=== PATIENT | female | born 1980 | race Caucasian/White ===

== ENCOUNTER 2016-08-01 16:26 | Outpatient (CLI) | payer BC ==
[2016-08-01 16:50] VITALS: BP 116/64
[2016-08-02] MEDS ORDERED: PRENATAL TABLE1 EAC3 PO (06:21)
[2016-08-02] MEDS ORDERED: PRILOSEC OTC20 MG PO (06:21)
[2016-08-02] MEDS ORDERED: VALTREX50 MG/ML PO (06:21)
== END 2016-08-01 18:31 | disposition home or self-care (01) ==
LOC: LDRP-OP → 2WEST 16:27 → LDRP-OP 09-14 13:38
DX: O36.8130 Decreased fetal movements, third trimester, not applicable or unspecified (principal); O99.89 Other specified diseases and conditions complicating pregnancy, childbirth and the puerperium; Z3A.38 38 weeks gestation of pregnancy
CPT/HCPCS: 59025; G0378

== ENCOUNTER 2016-08-02 05:08 | Inpatient (IN) | payer BC ==
[2016-08-02] VITALS (22 sets, daily range): BP systolic 94–143; BP diastolic 55–82
[~2016-08-02] VITALS: Ht 154.9 cm; Wt 74.1 kg
[2016-08-02] MEDS ORDERED: PRENATAL TABLE1 EAC3 PO (06:21)
[2016-08-02] MEDS ORDERED: VALTREX50 MG/ML PO (06:21)
[2016-08-02] MEDS ORDERED: PRILOSEC OTC20 MG PO (06:21)
[2016-08-02 06:34] LABS: EOSINOPHIL COUNT 0.2 K/uL (0-0.3); HEMATOCRIT 37.5 % (36.0-46.0); IMMATURE GRANULOCYTE (%) 0.6 % (0.0-0.7); IMMATURE GRANULOCYTE COUNT 0.7 K/uL; LYMPHOCYTE COUNT 2.3 K/uL (1.0-2.8); MCHC 33.6 G/DL (30.0-36.0); MCV 86.2 FL (83-99); MEAN PLAT.VOLUME 10.1 uM^3 (9.5-12.4); MONOCYTE (%) 5.6 % (3-12); MONOCYTE COUNT 0.6 K/uL (0-0.8); NEUTROPHIL (%) 71.2 % (45-76); NEUTROPHIL COUNT 7.9 K/uL (1.8-6.4); PLATELET COUNT 187 K/uL (156-360); RBC DIS.WIDTH-CV 14.1 % (11.8-14.6); RBC DIS.WIDTH-SD 42.9 % (39-53); RED BLOOD COUNT 4.35 M/uL (3.80-5.20); WHITE BLOOD COUNT 11.1 K/uL (4.1-10.2)
[2016-08-03 06:45] LABS: EOSINOPHIL (%) 0.8 % (0-5); EOSINOPHIL COUNT 0.1 K/uL (0-0.3); HEMATOCRIT 32.9 % (36.0-46.0); IMMATURE GRANULOCYTE (%) 0.5 % (0.0-0.7); IMMATURE GRANULOCYTE COUNT 0.1 K/uL; LYMPHOCYTE COUNT 1.9 K/uL (1.0-2.8); MCH 28.1 PG (29.0-34.0); MCHC 31.9 G/DL (30.0-36.0); MEAN PLAT.VOLUME 10.5 uM^3 (9.5-12.4); MONOCYTE (%) 4.2 % (3-12); MONOCYTE COUNT 0.6 K/uL (0-0.8); NEUTROPHIL (%) 81.4 % (45-76); NEUTROPHIL COUNT 12.2 K/uL (1.8-6.4); PLATELET COUNT 171 K/uL (156-360); RBC DIS.WIDTH-CV 14.7 % (11.8-14.6); RBC DIS.WIDTH-SD 46.2 % (39-53); RED BLOOD COUNT 3.74 M/uL (3.80-5.20)
[2016-08-03 07:56] VITALS: BP 122/75
[2016-08-03 15:44] VITALS: BP 107/57
[2016-08-03 23:50] VITALS: BP 108/61
[2016-08-04 08:14] VITALS: BP 112/76
[2016-08-04] MEDS ORDERED: DOCUSATE SODIU100 MG PO (11:03)
[2016-08-04] MEDS ORDERED: IBUPROFEN800 MG PO (11:03)
[2016-08-04] MEDS ORDERED: ANALPRAM HC 2.5%4 GM PR (11:04)
[2016-08-04] MEDS ORDERED: ENDOCET 5-3251 EACH PO (11:04)
[2016-08-04 14:40] VITALS: BP 109/69
== END 2016-08-04 21:21 | disposition home or self-care (01) | DRG 774 ==
LOC: LDRP-OP 05:08 → 2WEST 05:09 → LDRP-OP 09-14 23:28
PROVIDERS: Advanced Practice Midwife
DX: O70.1 Second degree perineal laceration during delivery (principal); O98.52 Other viral diseases complicating childbirth; O99.89 Other specified diseases and conditions complicating pregnancy, childbirth and the puerperium; N32.89 Other specified disorders of bladder; B00.9 Herpesviral infection, unspecified; Z3A.38 38 weeks gestation of pregnancy; Z37.0 Single live birth
CPT/HCPCS: 85025; C1755; J0595; J2405; J3010; J7120